=== PATIENT | female | born 1985 | race Caucasian/White ===

== ENCOUNTER 2019-08-11 07:05 | Day surgery (SDC) | payer BC ==
[2019-08-11] MEDS ORDERED: Propofol 200 MG/20 ML SDV ONE (07:29)
[2019-08-11] MEDS ORDERED: Succinylcholine 200 MG/10 ML MDV ONE (07:29)
[2019-08-11] MEDS ORDERED: Rocuronium 50 MG/5 ML Vial ONE (07:29)
[2019-08-11] MEDS ORDERED: Neostigmine Methylsulfate 1 MG/ML 5 ML Syringe ONE (07:29)
[2019-08-11] MEDS ORDERED: Glycopyrrolate 0.2 MG/ML 5 ML MDV ONE (07:29)
[2019-08-11] MEDS ORDERED: Dexamethasone 4 MG/ML SDV ONE (07:29)
[2019-08-11] MEDS ORDERED: Ondansetron 4 MG/2 ML SDV ONE (07:29)
[2019-08-11] MEDS ORDERED: fentaNYL 250 MCG/5 ML SDV ONE ×2 (07:33→09:05)
[2019-08-11] MEDS ORDERED: Benzocaine/Cetylpyridinium/Menthol Lozenge MUCMEM PRN (07:57)
[2019-08-11] MEDS ORDERED: Docusate Sodium 100 MG Cap PO PRN (07:57)
[2019-08-11] MEDS ORDERED: hydrOXYzine HCl 100 MG/2 ML SDV IM PRN (07:57)
[2019-08-11] MEDS ORDERED: Zolpidem 5 MG Tab PO PRN (07:57)
[2019-08-11] MEDS ORDERED: metroNIDAZOLE/Normal Saline 500 MG in Premix Bag 1 BAG IV ONE (08:00)
[2019-08-11] MEDS ORDERED: ceFAZolin 2 GM in Premix Bag 1 BAG IV ONE (08:00)
[2019-08-11] MEDS: Sodium Chloride 0.9% 1,000 ML IV SCH ×2 (08:04→11:54)
[2019-08-11] MEDS ORDERED: Ropivacaine 32 ML, dexAMETHasone 8 MG, EPINEPHrine 0.4 MG, Sodium Chloride 0.9% 45.6 ML NERVRT SCH ×4 (08:30)
[2019-08-11] MEDS: Lidocaine 1% with EPINEPHrine 1:100,000 50 ML MDV ONE ×2 (09:30→09:39)
[2019-08-11] MEDS: Bupivacaine 0.5% 50 ML MDV ONE ×2 (09:30→09:39)
[2019-08-11] MEDS: Acetaminophen/HYDROcodone 325-5 MG Tab PO PRN ×2 (11:13→15:27)
--- NOTE | 2019-08-12 08:53 | OR ---
DATE OF PROCEDURE: 08/11/2019 SURGEON: Ben Ro MD PROCEDURES: 1. Laparoscopic cholecystectomy. 2. Laparoscopic lysis of adhesions. COMPLICATIONS: None. 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 ANESTHESIA: General/local. RISKS: Risks, benefits, alternatives, and limitations including, but not limited to infection, bleeding, injury to cystic or common bile duct, cystic duct leaks, open surgery, and other risks not listed here were explained to the patient, and she wished to proceed. The patient was also reiterated that, although, her imaging is negative with respect to her gallbladder, she is clinically consistent with cholecystitis; however, this could result in us removing a normal gallbladder. PROCEDURE IN DETAIL: The patient was placed in supine position. A supraumbilical curvilinear incision was made. A Veress needle was used to enter the abdomen without abnormality and drop test was performed without abnormality. An additional 10 and two 5 mm ports were entered under direct visualization. The gallbladder was retracted cephalad. During this process, the patient had intense adhesions around the gallbladder with a very prominent hepatic vein in proximity. Gentle blunt dissection was performed, and the hepatic vein was not interacted with in any way nor did we come within 1 cm or more of it. Moving the anatomical structures out of the way, the blunt dissection around the cystic duct was then performed. A single pulsatile structure was noted to enter the gallbladder and a single nonpulsatile structure was noted to enter the gallbladder. This was after a "clear view" of the gallbladder was obtained. These were subsequently clipped x3 and transected. The remaining one-third of the gallbladder was removed off the liver bed without difficulty. This was delivered through the superior port without difficulty. The pressure was lowered and no gallbladder bed bleeding was noted. This was then thoroughly irrigated. The patient was moved in multiple positions to remove the fluid. Lysis of adhesions was then performed with respect to the liver. This was performed using Harmonic Scalpel and, in addition, a single band was performed in the descending colon, which also could be contributing to her pain. The entry point was inspected again for enterotomy injury and none was noted. The air was removed. The wounds were closed with 3-0 Vicryl and 4-0 Vicryl in an interrupted running fashion after irrigation. The patient tolerated the procedure well. Ben Ro MD /[id number]
--- NOTE | 2019-08-12 08:57 | OR ---
DATE OF PROCEDURE: 08/11/2019 SURGEON: Ben Ro MD PROCEDURE: Transversus abdominis plane block, bilaterally. COMPLICATION: None. 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 RISKS: Risks, benefits, alternatives, and limitations including, but not limited to infection, bleeding, and injury to abdominal structures were explained to the patient, and she wished to proceed. PROCEDURE IN DETAIL: The patient was placed in supine position. The left transversus plane was identified first using 11 megahertz ultrasound probe. This was injected with approximately 80% of the contents of the syringe. The right side was then performed in same manner, same fashion, same technique, and in the same sequence, except different needle and syringe, also under ultrasound guidance. Dressings were applied. The patient tolerated the procedure well. Ben Ro MD /[id number]
== END 2019-08-11 16:00 | disposition home or self-care (01) ==
LOC: JP.SDS 07:05 → JP.MS 10:30 → JP.SDS 16:00
PROVIDERS: ATTEND Surgery
DX: K81.1 Chronic cholecystitis (principal); K82.8 Other specified diseases of gallbladder; G89.18 Other acute postprocedural pain; Z88.5 Allergy status to narcotic agent; Z87.891 Personal history of nicotine dependence; Z79.899 Other long term (current) drug therapy
CPT/HCPCS: 47562; 64488; 81025; A9270; J0171; J0690; J1100; J2405; J2704; J2710; J2795; J3010; J3410; J3490; J7030; J7050; 88304; J0330